=== PATIENT | female | born 1995 | race Two or more races ===

== ENCOUNTER 2016-11-27 06:25 | Emergency (ER) | payer MEDICAID ==
[~2016-11-27] VITALS: Ht 177.8 cm; Wt 77.1 kg
[2016-11-27] MEDS ORDERED: NKM (06:30)
[2016-11-27] MEDS ORDERED: IBUPROFEN800 MG ORAL (06:49)
[2016-11-27 06:52] VITALS: BP 122/85
[2016-11-27] MEDS ORDERED: Ketorolac 60mg Inj IM ONE (07:00)
--- NOTE | 2016-11-27 07:11 | Emergency Room Report ---
History of Present Illness General Chief Complaint: Sore Throat Source: Patient Present Illness HPI 21 YOF with sore throat since waking up this morning. Pain with swallowing, centrally located. No difficulty swallowing liquid/solids. Associated with recent URI symptoms - rhinorrhea, cough, sinus congestion. Denies fever/chills , headache, neck pain, sick contacts. Didnt take any OTC meds. On control. Allergies: Coded Allergies: No Known Allergies (Unverified , 11/27/16) Patient History Past Medical History: none Past Surgical History: none Pertinent Family History: none Social History: Denies: alcohol use, drug use, smoking Last Menstrual Period: now Now: No Immunizations: UTD Reviewed Nursing Documentation: PMH: Agreed, PSxH: Agreed Nursing Documentation-PMH Past Medical History: No Stated History Review of Systems All Other Systems: negative except mentioned in HPI Physical Exam Vital Signs Date Time Temp Pulse Resp B/P Pulse Ox O2 Delivery O2 Flow Rate FiO2 11/27/16 06:26 99.3 83 16 124/85 99 Sp02 EP Interpretation: reviewed, normal General Appearance: normal inspection, well appearing, no apparent distress, alert, GCS 15, non-toxic Head: normocephalic, atraumatic Eyes: bilateral eye EOMI, bilateral eye PERRL ENT: normal ENT inspection, hearing grossly normal, normal pharynx, no angioedema, normal voice, TMs + canals normal, uvula midline, moist mucus membranes Neck: normal inspection, full range of motion, supple, no bony tend Respiratory: normal inspection, lungs clear, normal breath sounds, no respiratory distress, no retraction, no wheezing Cardiovascular #1: regular rate, rhythm, no edema Gastrointestinal: normal inspection, normal bowel sounds, non tender, soft, no guarding, no hernia Genitourinary: no CVA tenderness Musculoskeletal: normal inspection, back normal, normal range of motion, Roseline' s Sign negative Neurologic: normal inspection, alert, oriented x3, responsive, 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 VSS. Afebrile No obvious source of bacterial infection in oropharynx, ears, lungs, skin, abdomen on exam Well appearing Advised supportive treatment Toradol given in ED PMD followup DC home Likely viral pharyngitis Understands to return for worsening symptoms - Ibuprofen PRN sore throat - Follow up with your primary care doctor in 2-3 days Last Vital Signs Date Time Temp Pulse Resp B/P Pulse Ox O2 Delivery O2 Flow Rate FiO2 11/27/16 06:52 99.3 83 18 122/85 99 Status: improved Disposition: HOME, SELF-CARE Condition: Improved Scripts Ibuprofen* (MOTRIN*) 800 Mg Tablet 800 MG ORAL THREE TIMES A DAY for sore throat, #30 TAB 0 Refills Prov: JOSE ROBERTO TIJERINA M.D. 11/27/16 Patient Instructions: Sore Throat Additional Instructions: - Drink plenty of water, especially before bed and in the morning - Take ibuprofen every 8 hours with food for sore throat - Follow up with your primary care doctor in 2-3 days Return to ER if pain worsens and if you are unable to swallow liquid or the ibuprofen JOSE ROBERTO TIJERINA M.D. Nov 27, 2016 07:11
== END 2016-11-27 07:10 | disposition home or self-care (01) ==
LOC: EDBD 06:25 → EMR 06:45
DX: R07.0 Pain in throat (principal)
CPT/HCPCS: 96372; 99283